=== PATIENT | female | born 1975 | race Two or more races ===

== ENCOUNTER → 2017-03-29 | Outpatient (CLI) | payer SELFPAY ==
[~2017-03-29] MED LIST: CIPRO500 MG PO; HUMALOG100 UNIT/1; LEVEMIR100 UNIT/1 SUB-Q; VASOTEC2.5 MG PO
== END | disposition disaster alternative care site (69) ==
LOC: GRAD 14:27
DX: R10.9 Unspecified abdominal pain (principal); R91.1 Solitary pulmonary nodule; I70.0 Atherosclerosis of aorta